=== PATIENT | female | born 1950 | race Two or more races ===

== ENCOUNTER 2025-05-31 13:18 | Inpatient (IN) | payer MEDICARE, OTHER ==
[~2025-05-31] VITALS: Ht 165.1 cm; Wt 79.4 kg
[2025-05-31] MEDS ORDERED: ACET325T53 PO (14:28)
[2025-05-31] MEDS ORDERED: NA P133E RC (14:28)
[2025-05-31] MEDS ORDERED: TUBE5VIA2 ID (14:28)
[2025-05-31] MEDS ORDERED: POLY17PO4 PO (14:28)
[2025-05-31] MEDS ORDERED: MAGN400O6 PO (14:28)
[2025-05-31] MEDS ORDERED: BISA10SU61 RC (14:28)
[2025-05-31] MEDS: IV NS 1000 ML 1,000 ML IV PRN (16:08)
[2025-05-31 16:10] LABS: PLATELET COUNT (AUTO) 124 K/uL (179-408); RED BLOOD CELL COUNT(AUTO) 4.64 MIL/uL (3.63-4.92); RED CELL DISTRIBUTION WIDTH 14.7 % (12.3-17.7); WHITE BLOOD COUNT (AUTO) 5.7 K/uL (3.8-11.8)
[2025-05-31 16:18] LABS: CREATININE 0.7 mg/dL (0.6-1.3); SODIUM SERUM 139 mmol/L (136-145); UREA NITROGEN, BLOOD 28 mg/dL (7-18)
[2025-05-31 17:00] VITALS: BP 110/74
[2025-05-31 17:33] VITALS: BP 108/78; TEMP 97.2; O2SAT 99
[2025-05-31] MEDS ORDERED: MAGNESIUM HYDROXIDE 30 ML LIQUID UDC PO PRN ×2 (18:15→18:30)
[2025-05-31] MEDS ORDERED: FLEET ENEMA 133 ML BOTTLE RC PRN (18:15)
[2025-05-31] MEDS ORDERED: BISACODYL 10 MG SUPP.RECT RC PRN (18:15)
[2025-05-31] MEDS ORDERED: TEMAZEPAM 15 MG CAPSULE PO PRN (18:30)
[2025-05-31] MEDS ORDERED: ACETAMINOPHEN 325 MG TABLET PO PRN (18:30)
[2025-05-31 21:00] VITALS: BP 115/52; TEMP 97.2; O2SAT 100
[2025-05-31] MEDS ORDERED: DOCUSATE SODIUM 250 MG CAPSULE PO SCH (21:00)
[2025-05-31] MEDS: DOCUSATE SODIUM 100 MG CAPSULE PO SCH (22:56)
[2025-06-01 04:00] VITALS: BP 101/57; TEMP 97.8; O2SAT 97
[2025-06-01] MEDS: PANTOPRAZOLE SODIUM 40 MG TABLET.DR PO SCH (06:42)
[2025-06-01 07:37] LABS: PLATELET COUNT (AUTO) 106 K/uL (179-408); RED BLOOD CELL COUNT(AUTO) 4.22 MIL/uL (3.63-4.92); RED CELL DISTRIBUTION WIDTH 14.6 % (12.3-17.7); WHITE BLOOD COUNT (AUTO) 4.5 K/uL (3.8-11.8)
[2025-06-01 07:40] VITALS: BP 102/53; TEMP 98.2; O2SAT 96
[2025-06-01 07:56] LABS: IRON, SERUM 69 ug/dL (50-175)
[2025-06-01 08:01] LABS: ASPARTATE AMINOTRANSFERASE 12 U/L (15-37); CREATININE 0.6 mg/dL (0.6-1.3); SODIUM SERUM 142 mmol/L (136-145); TOTAL PROTEIN, SERUM 6.2 g/dL (6.4-8.2); UREA NITROGEN, BLOOD 21 mg/dL (7-18)
[2025-06-01] MEDS ORDERED: TEMAZEPAM 7.5 MG CAPSULE PO PRN (08:30)
[2025-06-01] MEDS: ONDANSETRON 4 MG/2 ML VIAL IV PRN (10:47)
[2025-06-01] MEDS: IV NS 1000 ML 1,000 ML IV PRN (10:49)
[2025-06-01 11:09] VITALS: BP 125/60; TEMP 97.6; O2SAT 97
[2025-06-01 15:42] VITALS: BP 101/56; TEMP 98.2; O2SAT 97
[2025-06-01 19:46] VITALS: BP 110/67; TEMP 97.8; O2SAT 98
[2025-06-01] MEDS: ENOXAPARIN SODIUM 40 MG/0.4 ML DISP.SYRIN SQ SCH (20:11)
[2025-06-02 00:24] VITALS: BP 124/52; TEMP 97.8; O2SAT 95
[2025-06-02 04:30] VITALS: BP 105/57; TEMP 97.9; O2SAT 95
[2025-06-02 07:40] VITALS: BP 116/59; TEMP 98.5; O2SAT 94
[2025-06-02 11:03] VITALS: BP 110/70; TEMP 98.2; O2SAT 96
[2025-06-02 11:35] LABS: *BILIRUBIN,URIN NEGATIVE (NEGATIVE); *BLOOD, URINE NEGATIVE (NEGATIVE); *CLARITY,URINE CLEAR (CLEAR); *COLOR,URINE YELLOW (YELLOW); *KETONES,URINE NEGATIVE (NEGATIVE); *PROTEIN,URINE NEGATIVE (NEGATIVE); *UROBILINOGEN,URINE 0.2 E.U./dl (NORMAL); LEUKOCYTE ESTERASE ,URINE NEGATIVE (NEGATIVE); NITRITE, URINE NEGATIVE (NEGATIVE); UGLUCOSE NEGATIVE (NEGATIVE)
[2025-06-02 15:01] VITALS: BP 115/70; TEMP 98.2; O2SAT 96
[2025-06-03 05:11] VITALS: BP 131/66; TEMP 98.1; O2SAT 94
[2025-06-03] MEDS ORDERED: DOCU-141 PO (14:43)
[2025-06-03] MEDS ORDERED: FAMO-132 PO (14:43)
[2025-06-03] MEDS ORDERED: TEMA7.5C PO (14:43)
[2025-06-03] MEDS ORDERED: PROT30LI PO (14:43)
[2025-06-03] MEDS ORDERED: ACET325T53 PO (14:43)
[2025-06-03] MEDS ORDERED: QUET25TA PO (14:43)
[2025-06-03] MEDS ORDERED: MULT-1045 PO (14:43)
[2025-06-03] MEDS ORDERED: ASPI-1101 PO (14:43)
== END 2025-06-03 18:00 | DRG 640 ==
LOC: ER 13:18 → TELE3 15:00 → MEDSURG3 06-02 19:46
PROVIDERS: ADMIT Internal Medicine; ATTEND Internal Medicine
DX: E83.52 Hypercalcemia (principal); I50.31 Acute diastolic (congestive) heart failure; E44.0 Moderate protein-calorie malnutrition; G93.40 Encephalopathy, unspecified; D68.59 Other primary thrombophilia; F03.911 Unspecified dementia, unspecified severity, with agitation; I67.89 Other cerebrovascular disease; E86.0 Dehydration; D69.6 Thrombocytopenia, unspecified; E66.9 Obesity, unspecified; Z68.29 Body mass index [BMI] 29.0-29.9, adult; I11.0 Hypertensive heart disease with heart failure; Z74.09 Other reduced mobility; Z87.891 Personal history of nicotine dependence; I45.10 Unspecified right bundle-branch block
CPT/HCPCS: 36415; 70450; 71045; 83550; 83735; 84100; 84443; 84484; 85025; 87086; 93307; A4663; G0378; J1650; J2405; J7040

== ENCOUNTER 2025-08-07 13:27 | Inpatient (IN) | payer MEDICARE, OTHER ==
[~2025-08-07] VITALS: Ht 162.6 cm; Wt 66.5 kg
[~2025-08-07 13:27] MED LIST: ACET325T53 PO; ASPI-1101 PO; BISA10SU61 RC; DOCU-141 PO; FAMO-132 PO; MULT-1045 PO; NA P133E RC; POLY17PO4 PO; PROT30LI PO; QUET25TA PO; TEMA7.5C PO; TUBE5VIA2 ID
[2025-08-07] MEDS ORDERED: CEFTRIAXONE /D5W 50ML IVPB **ER PYXIS IV ONE (13:47)
[2025-08-07] MEDS ORDERED: MAGN400O6 PO (13:57)
[2025-08-07] MEDS: IV NORMAL SALINE 1000 ML BAG IV ONE (14:03)
[2025-08-07 14:06] LABS: PLATELET COUNT (AUTO) 142 K/uL (179-408); RED BLOOD CELL COUNT(AUTO) 4.34 MIL/uL (3.63-4.92); RED CELL DISTRIBUTION WIDTH 13.4 % (12.3-17.7); WHITE BLOOD COUNT (AUTO) 3.8 K/uL (3.8-11.8)
[2025-08-07 14:14] LABS: CREATININE 0.6 mg/dL (0.6-1.3); SODIUM SERUM 142 mmol/L (136-145); UREA NITROGEN, BLOOD 11 mg/dL (7-18)
[2025-08-07 14:17] LABS: ETHANOL < 3 MG/DL (0-10)
[2025-08-07 14:25] LABS: NT-PRO BNP 22 pg/mL (0-125)
[2025-08-07 14:30] LABS: ASPARTATE AMINOTRANSFERASE 6 U/L (15-37); TOTAL PROTEIN, SERUM 7.2 g/dL (6.4-8.2)
[2025-08-07 15:22] LABS: *BILIRUBIN,URIN NEGATIVE (NEGATIVE); *BLOOD, URINE NEGATIVE (NEGATIVE); *CLARITY,URINE CLEAR (CLEAR); *COLOR,URINE YELLOW (YELLOW); *KETONES,URINE NEGATIVE (NEGATIVE); *PROTEIN,URINE NEGATIVE (NEGATIVE); *UROBILINOGEN,URINE 2.0 E.U./dl (NORMAL); LEUKOCYTE ESTERASE ,URINE NEGATIVE (NEGATIVE); NITRITE, URINE NEGATIVE (NEGATIVE); UGLUCOSE NEGATIVE (NEGATIVE)
[2025-08-07 15:31] LABS: SQUAMOUS EPITHELIAL CELL,UR FEW /HPF (NONE SEEN)
[2025-08-07 15:33] LABS: *AMPHETAMINE, URINE NEGATIVE (NEGATIVE); *BARBITURATE, URINE NEGATIVE (NEGATIVE); *BENZODIAZEPINE, URINE POSITIVE (NEGATIVE); *CANNABINOID, URINE NEGATIVE (NEGATIVE); *COCCAINE, URINE NEGATIVE (NEGATIVE); *OPIATE, URINE NEGATIVE (NEGATIVE); *PHENCYCLIDINE SCREEN,URINE NEGATIVE (NEGATIVE); FENTANYL, URINE NEGATIVE (NEGATIVE)
[2025-08-07] MEDS ORDERED: LORAZEPAM 2 MG/1 ML VIAL ONE (15:45)
[2025-08-07] MEDS ORDERED: HALOPERIDOL LACTATE 5 MG/1 ML VIAL ONE (15:45)
[2025-08-07] MEDS ORDERED: diphenhydrAMINE 50 MG/1 ML VIAL ONE (15:45)
[2025-08-07] MEDS: diphenhydrAMINE 50 MG/1 ML VIAL IV ONE (15:54)
[2025-08-07] MEDS: LORAZEPAM 2 MG/1 ML VIAL IV ONE (15:54)
[2025-08-07] MEDS: HALOPERIDOL LACTATE 5 MG/1 ML VIAL IV ONE (15:54)
[2025-08-07] MEDS ORDERED: MAGNESIUM HYDROXIDE 30 ML LIQUID UDC PO PRN (18:00)
[2025-08-07] MEDS ORDERED: REMEDY ESSENTIAL ZINC PASTE 113 GM TP PRN (18:00)
[2025-08-07] MEDS ORDERED: ONDANSETRON 4 MG/2 ML VIAL IV PRN (18:00)
[2025-08-07] MEDS ORDERED: ACETAMINOPHEN 325 MG TABLET PO PRN (18:00)
[2025-08-07 19:15] VITALS: BP 115/92
[2025-08-07] MEDS: IV NS 1000 ML 1,000 ML IV PRN (20:59)
[2025-08-07] MEDS: ENOXAPARIN SODIUM 40 MG/0.4 ML DISP.SYRIN SQ SCH (21:01)
[2025-08-07 22:03] VITALS: BP 130/72; TEMP 97.2; O2SAT 99
[2025-08-08 06:41] VITALS: BP 117/66; TEMP 98.1; O2SAT 100
[2025-08-08 07:04] LABS: PLATELET COUNT (AUTO) 113 K/uL (179-408); RED BLOOD CELL COUNT(AUTO) 4.23 MIL/uL (3.63-4.92); RED CELL DISTRIBUTION WIDTH 13.6 % (12.3-17.7); WHITE BLOOD COUNT (AUTO) 3.6 K/uL (3.8-11.8)
[2025-08-08 07:14] LABS: CREATININE 0.6 mg/dL (0.6-1.3); SODIUM SERUM 145 mmol/L (136-145); UREA NITROGEN, BLOOD 9 mg/dL (7-18)
[2025-08-08 08:02] VITALS: BP 108/69; TEMP 97.6; O2SAT 100
[2025-08-08] MEDS: ASPIRIN EC 81 MG TABLET.DR PO SCH (08:43)
[2025-08-08 15:07] VITALS: BP 110/70; TEMP 97.6; O2SAT 99
[2025-08-08 19:16] VITALS: BP 129/76; TEMP 98.3; O2SAT 98
[2025-08-08] MEDS: DOCUSATE SODIUM 100 MG CAPSULE PO SCH (20:54)
[2025-08-09 05:40] VITALS: BP 120/81; TEMP 98.2; O2SAT 95
[2025-08-09 12:00] VITALS: BP 125/58; TEMP 97.8; O2SAT 98
[2025-08-09] MEDS ORDERED: LORAZEPAM 0.5 MG TABLET PO PRN (15:45)
[2025-08-09 16:00] VITALS: BP 113/69; TEMP 97.6; O2SAT 97
[2025-08-09] MEDS: QUETIAPINE FUMARATE 25 MG TABLET PO SCH (16:32)
[2025-08-09 21:45] VITALS: BP 107/61; TEMP 97.7; O2SAT 98
[2025-08-10 06:22] VITALS: BP 120/64; TEMP 97.7; O2SAT 100
[2025-08-10] MEDS ORDERED: QUET25TA36 PO (10:16)
[2025-08-10] MEDS ORDERED: LORA-258 PO (10:16)
[2025-08-10 12:00] VITALS: BP 114/66; TEMP 97.8; O2SAT 98
[2025-08-10 16:00] VITALS: BP 117/60; TEMP 97.6; O2SAT 98
== END 2025-08-10 16:30 | DRG 640 ==
LOC: ER 14:00 → TELE3 19:47 → MEDSURG3 19:55
PROVIDERS: ADMIT Internal Medicine; ATTEND Internal Medicine
DX: E86.0 Dehydration (principal); G93.41 Metabolic encephalopathy; F03.911 Unspecified dementia, unspecified severity, with agitation; D69.6 Thrombocytopenia, unspecified; N18.9 Chronic kidney disease, unspecified; F03.92 Unspecified dementia, unspecified severity, with psychotic disturbance; Z78.1 Physical restraint status; E83.52 Hypercalcemia; Z79.82 Long term (current) use of aspirin; R00.1 Bradycardia, unspecified
CPT/HCPCS: 36415; 71045; 83605; 83735; 84100; 84484; 85025; 85730; 87040; 87086; A4606; A4663; G0378; G0480; J0696; J1200; J1630; J1650; J2060; J7040

== ENCOUNTER 2025-08-24 11:22 | Emergency (ER) | payer MEDICARE, OTHER ==
[~2025-08-24] VITALS: Ht 162.6 cm; Wt 68.0 kg
[~2025-08-24 11:22] MED LIST changes: +LORA-258 PO; +MAGN400O6 PO; -QUET25TA PO; +QUET25TA36 PO; -TEMA7.5C PO; -TUBE5VIA2 ID
[2025-08-24 13:54] LABS: PLATELET COUNT (AUTO) 154 K/uL (179-408); RED BLOOD CELL COUNT(AUTO) 4.35 MIL/uL (3.63-4.92); RED CELL DISTRIBUTION WIDTH 13.3 % (12.3-17.7); WHITE BLOOD COUNT (AUTO) 4.1 K/uL (3.8-11.8)
[2025-08-24 13:59] LABS: CREATININE 0.7 mg/dL (0.6-1.3); SODIUM SERUM 142 mmol/L (136-145); UREA NITROGEN, BLOOD 12 mg/dL (7-18)
[2025-08-24 14:05] LABS: ASPARTATE AMINOTRANSFERASE 15 U/L (15-37); TOTAL PROTEIN, SERUM 7.3 g/dL (6.4-8.2)
[2025-08-24 14:09] LABS: ETHANOL < 3 MG/DL (0-10)
[2025-08-24 14:55] VITALS: BP 112/82; O2SAT 99
== END 2025-08-24 16:04 ==
LOC: ER 11:22
DX: E83.52 Hypercalcemia (principal); F03.94 Unspecified dementia, unspecified severity, with anxiety; I50.9 Heart failure, unspecified; I67.82 Cerebral ischemia; N18.9 Chronic kidney disease, unspecified; Z79.82 Long term (current) use of aspirin; Z79.899 Other long term (current) drug therapy
CPT/HCPCS: 36415; 85025; A4606; A4663; G0480